=== PATIENT | male | born 1985 | race Caucasian/White ===

== ENCOUNTER 2016-11-23 20:18 | Emergency (ER) | payer OTHER ==
--- NOTE | 2016-12-04 20:32 | ER ---
ADMIT: 11/23/2016 RM/LOC: ER [facility] MR#: [id number] [address] [facility] [address] [place], [place] [id number] CHIKIS CARO [address] [address] Emergency Room Report SEX: M AGE: 31 : 1985 DATE: 11/23/2016 HISTORY OF PRESENT ILLNESS: The patient was elbowed at a soccer game in the center of his forehead. He has a 3 cm laceration to the forehead. Did not lose any consciousness. The reason he is here is because of the accident, he wanted to check, and he was of course bleeding. His vitals are within normal limits. He has had hand surgery. He is a smoker, half a pack a day. Did not lose consciousness. He does have a laceration that needs repair. We did apply LET for 25 minutes. The area was completely anesthetized. The procedure took place after we cleansed the area with Ultradex. Irrigated with saline and used some Betadine to clean the surrounding area. Ten simple interrupted sutures of 6-0 Prolene were applied to the laceration. Procedure well tolerated. Area approximated very good. Instructions given to patient for care. DIAGNOSIS: Laceration to forehead. PLAN: Instructions to have the sutures removed in 5 days. Make sure he does not expose it to light. Keep it covered while at work, and follow up with primary provider. JILLIAN Morrow / Domo Medeiros MD / juliette JOB #: [id number] CC: Domo Medeiros MD, Attending Physician Dylan Dowell MD, Family Physician
== END 2016-11-23 21:55 | disposition home or self-care (01) ==
LOC: ER 20:18
PROC: 0HQ1XZZ Repair Face Skin, External Approach (ICD-10-PCS; principal; 2016-11-23)
DX: S01.81XA Laceration without foreign body of other part of head, initial encounter (principal); F17.210 Nicotine dependence, cigarettes, uncomplicated; X58.XXXA Exposure to other specified factors, initial encounter; Y93.66 Activity, soccer; Y92.830 Public park as the place of occurrence of the external cause